=== PATIENT | female | born 1975 | race Caucasian/White ===

== ENCOUNTER 2017-01-11 10:21 | Emergency (ER) | payer BC ==
[~2017-01-11] VITALS: Ht 170.2 cm; Wt 119.8 kg
[~2017-01-11 10:21] MED LIST: DULO60CA44 PO; EPIPEN; IVIG IV; LEVO200T PO
[2017-01-11 10:23] VITALS: TEMP 36.8; Ht 170.2 cm; Wt 119.8 kg
[2017-01-11] MEDS ORDERED: ONDANSETRON INJ 2 MG/ML 2 ML VIAL IV STA ×2 (11:29→14:17)
[2017-01-11 11:36] LABS: MANUAL MICROSCOPIC REQUIRED? YES; URINE APPEARANCE CLOUDY (CLEAR); URINE BILIRUBIN NEG (NEG); URINE COLOR YELLOW; URINE NITRITE NEG (NEG); URINE PH 5.5 (4.5-7.5); URINE SPECIFIC GRAVITY >= 1.030 (1.000-1.030); UROBILINOGEN NEG (NEG)
[2017-01-11 11:46] LABS: REVIEW REQ? NO
[2017-01-11] MEDS ORDERED: LEVO175T PO (11:49)
[2017-01-11] MEDS ORDERED: EPP3/2 IM (11:49)
[2017-01-11] MEDS ORDERED: HYDR200T5 PO (11:52)
[2017-01-11] MEDS ORDERED: DMX250 PO (11:52)
[2017-01-11 11:55] LABS: URINE RBC 0-4 /hpf (0-4); URINE WBC 0 /hpf (0-5)
[2017-01-11 11:57] LABS: URINE AMORPHOUS SEDIMENT PRESENT (NONE PRSENT); URINE BACTERIA 1+ (NEG)
[2017-01-11 11:58] LABS: ZZUR CULT IF INDIC CLEAN CATCH YES
[2017-01-11 11:58] LABS: BASO % 0.2 %; BASO ABS # 0.02 K/uL (0-0.2); COMPLETE YES; EOS % 0.9 %; IG% 0.3 %; LYMPH % 17.3 %; MEAN CELL VOLUME 85.9 fL (80-100); MEAN CORPUSCULAR HEMOGLOBIN 30.1 pg (25-34); MEAN PLATELET VOLUME 10.6 fL (7.4-10.4); MONO % 7.9 %; NEUT % 73.4 %; PLATELET COUNT 241 K/uL (130-400); RED BLOOD COUNT 5.12 M/uL (4.2-5.4); WHITE BLOOD COUNT 11.56 K/uL (4.8-10.8)
[2017-01-11] MEDS ORDERED: ACET125T2 PO (12:10)
[2017-01-11] MEDS ORDERED: LIFI5DRO OPB (12:11)
[2017-01-11 12:18] LABS: BUN/CREATININE RATIO 13.1 (10-20); CREATININE 0.99 mg/dl (0.60-1.20); POTASSIUM 3.4 mmol/L (3.5-5.1)
[2017-01-11 12:22] LABS: ALB/GLOB RATIO 1.1 (0.9-2)
[2017-01-11 12:27] LABS: C-REACTIVE PROTEIN 1.22 mg/dl (0-0.29)
--- NOTE | 2017-01-11 12:35 | DIAGNOSTIC IMAGING REPORT ---
ABDOMINAL ULTRASOUND, RIGHT UPPER QUADRANT HISTORY: Right upper quadrant pain, nausea and diarrhea. COMPARISON: None. FINDINGS: Hepatic echogenicity is diffusely increased. No hepatic lesions are identified. There is no biliary ductal dilatation. There is no gallbladder wall thickening. There is echogenic material without associated shadowing within the gallbladder. This could reflect nonshadowing stones or sludge. The pancreatic body is normal. The head and tail are obscured. There is no right hydronephrosis. IMPRESSION: 1. Echogenic material within the gallbladder which could reflect stones or sludge. No evidence of acute cholecystitis. 2. No biliary ductal dilatation. 3. Fatty liver. Electronically signed by: Ruddy Prado M.D. 01/11/2017 12:33 PM Dictated Date/Time: 01/11/2017 12:32 PM
[2017-01-11] MEDS ORDERED: SODIUM CHLORIDE 0.9% 1000ML 1,000 ML IV STA ×2 (13:52→15:53)
[2017-01-11] MEDS ORDERED: PROMETHAZINE HCL INJ 25 MG in SODIUM CHLORIDE 0.9% 50ML 50 ML IV STA (15:53)
[2017-01-11 16:08] VITALS: BP 127/87
[2017-01-11] MEDS ORDERED: PROM25TA9 PO (17:04)
--- NOTE | 2017-01-11 17:09 | EMERGENCY ROOM VISIT NOTE ---
History First contact with patient: 11:10 Chief Complaint: DIARRHEA Stated Complaint: DIARRHEA, STOMACH CRAMPS, DEHYDRATION Nursing Triage Summary: I have been having diarrhea since sunday. I was told a while ago I needed my gallbladder out. History of Present Illness The patient is a 41 year old female who presents to the Emergency Room with complaints of abdominal cramping and diarrhea since Sunday. The patient reports that she has had profuse watery diarrhea without any blood. She rates her discomfort a 2 out of 10. She is concerned that she is dehydrated. She also reports a mild headache and dizziness yesterday. The patient has lost 10 pounds since Sunday. Every time she tries to eat or drink something, her diarrhea worsens. She denies any recent antibiotic treatment. She denies any recent foreign travel. She has no known sick contacts. The patient has a known history of gallstones and sludge, but has been too busy to follow-up with a general surgeon to discuss surgery. She currently rates her discomfort a 2 out of 10. Review of Systems HEENT: Denies current dizziness, visual problems, hearing loss, tinnitus. Denies difficulty swallowing or oral lesions. PULMONARY: Denies cough, shortness of breath, sputum production or hemoptysis. CARDIOVASCULAR: Denies chest pain, palpitations, dyspnea on exertion, orthopnea or peripheral edema. GASTROINTESTINAL: See history of present illness. GENITOURINARY: Denies dysuria, frequency, urgency or nocturia. NEUROLOGIC: Denies history of epilepsy, CVA, TIA or chronic headaches. MUSCULOSKELETAL: Denies history of joint tenderness/swelling. SKIN: Denies rashes or lesions. PSYCHIATRIC: Denies history of depression or mental illness. ENDOCRINE: Denies history of diabetes or thyroid disorders. Past Medical/Surgical History Medical Problems: (1) Body Mass Index 40.0-44.9, Adult (2) Gallstones (3) History of Sjogren's disease (4) Hx Of Thyroid Malignancy (5) Rheumatoid arthritis Surgical Problems: (1) History of hysterectomy (2) History of thymectomy (3) History of thyroidectomy (4) S/P left knee arthroscopy Family History Unremarkable Social History Smoking Status: Never Smoker Alcohol Use: none Marital Status: Housing Status: lives with family Occupation Status: employed Current/Historical Medications Scheduled Acetazolamide (Acetazolamide), 250 MG PO BID Duloxetine Hcl (Cymbalta), 60 MG PO BID Epinephrine (Epipen), 0.3 MG IM UD Hydroxychloroquine Sulfate (Plaquenil), 200 MG PO BID Levothyroxine Sodium (Synthroid), 175 MCG PO QAM Lifitegrast (Xiidra), 1 DROPS OPB BID [Ivig], 150 IV [id number] Scheduled PRN Promethazine Hcl (Phenergan), 25 MG PO Q6H PRN for Nausea Allergies Coded Allergies: BEE STING (Unverified Allergy, Unknown, SWELLING , SOB, 01/11/17) Sulfa Drugs (Unverified Allergy, Unknown, RASH, 01/11/17) Physical Exam Vital Signs Date Time Temp Pulse Resp B/P Pulse Ox O2 Delivery O2 Flow Rate FiO2 01/11/17 16:08 98 18 127/87 95 Room Air 01/11/17 14:13 76 18 116/75 98 Room Air 01/11/17 12:06 96 18 122/70 96 Room Air 01/11/17 10:23 36.8 107 18 137/91 100 Room Air Physical Exam CONSTITUTIONAL: Healthy and well nourished. Alert and oriented X 3 with positive affect. Patient appears mildly nauseated. HEENT: Normocephalic, atraumatic. Pupils equal, round and reactive. Ears and nares are clear. No scleral icterus or conjunctival injection. OROPHARYNX: No posterior pharyngeal erythema. Mucous membranes are not dry. NECK: Full active range of motion without discomfort. RESPIRATORY: Clear to auscultation bilaterally with no wheezing, crackles, rhonchi or stridor. CARDIOVASCULAR: Regular rate and rhythm with no murmurs, rubs or gallops. GASTROINTESTINAL: Bowel sounds present in all quadrants. Should has mild nonfocal tenderness to palpation. No rigidity, guarding or rebound. MUSCULOSKELETAL: Full range of motion of all joints without discomfort. INTEGUMENTARY: No rash or other significant dermatologic conditions noted. HEMATOLOGIC: No ecchymosis or petechiae. NEUROLOGIC: No focal neurologic deficits noted. Medical Decision & Procedures ER Provider Diagnostic Interpretation: Abdominal ultrasound does not show any evidence for pericholecystic fluid, common bile duct dilatation or wall thickening. Radiologist report is as follows: ABDOMINAL ULTRASOUND, RIGHT UPPER QUADRANT HISTORY: Right upper quadrant pain, nausea and diarrhea. COMPARISON: None. FINDINGS: Hepatic echogenicity is diffusely increased. No hepatic lesions are identified. There is no biliary ductal dilatation. There is no gallbladder wall thickening. There is echogenic material without associated shadowing within the gallbladder. This could reflect nonshadowing stones or sludge. The pancreatic body is normal. The head and tail are obscured. There is no right hydronephrosis. IMPRESSION: 1. Echogenic material within the gallbladder which could reflect stones or sludge. No evidence of acute cholecystitis. 2. No biliary ductal dilatation. 3. Fatty liver. Laboratory Results 01/11/17 11:35 Red Blood Count 5.12, Mean Corpuscular Volume 85.9, Mean Corpuscular Hemoglobin 30.1, Mean Corpuscular Hemoglobin Concent 35.0, Mean Platelet Volume 10.6, Neutrophils (%) (Auto) 73.4, Lymphocytes (%) (Auto) 17.3, Monocytes (%) (Auto) 7.9, Eosinophils (%) (Auto) 0.9, Basophils (%) (Auto) 0.2, Neutrophils # (Auto) 8.49, Lymphocytes # (Auto) 2.00, Monocytes # (Auto) 0.91, Eosinophils # (Auto) 0.10, Basophils # (Auto) 0.02 01/11/17 11:35 Test 01/11/17 11:20 01/11/17 11:35 Urine Color YELLOW Urine Appearance CLOUDY (CLEAR) Urine pH 5.5 (4.5-7.5) Urine Specific Delta >= 1.030 (1.000-1.030) Urine Protein TRACE (NEG) Urine Glucose (UA) NEG (NEG) Urine Ketones NEG (NEG) Urine Occult Blood NEG (NEG) Urine Nitrite NEG (NEG) Urine Bilirubin NEG (NEG) Urine Urobilinogen NEG (NEG) Urine Leukocyte Esterase NEG (NEG) Urine RBC (Auto) /hpf (0-4) Urine Epithelial Cells (Auto) /lpf (0-5) Urine RBC 0-4 /hpf (0-4) Urine WBC 0 /hpf (0-5) Urine Epithelial Cells 10-20 /lpf (0-5) Urine Amorphous Sediment PRESENT (NONE PRSENT) Urine Bacteria 1+ (NEG) White Blood Count 11.56 K/uL (4.8-10.8) Red Blood Count 5.12 M/uL (4.2-5.4) Hemoglobin 15.4 g/dL (12.0-16.0) Hematocrit 44.0 % (37-47) Mean Corpuscular Volume 85.9 fL (80-100) Mean Corpuscular Hemoglobin 30.1 pg (25-34) Mean Corpuscular Hemoglobin Concent 35.0 g/dl (32-36) Platelet Count 241 K/uL (130-400) Mean Platelet Volume 10.6 fL (7.4-10.4) Neutrophils (%) (Auto) 73.4 % Lymphocytes (%) (Auto) 17.3 % Monocytes (%) (Auto) 7.9 % Eosinophils (%) (Auto) 0.9 % Basophils (%) (Auto) 0.2 % Neutrophils # (Auto) 8.49 K/uL (1.4-6.5) Lymphocytes # (Auto) 2.00 K/uL (1.2-3.4) Monocytes # (Auto) 0.91 K/uL (0.11-0.59) Eosinophils # (Auto) 0.10 K/uL (0-0.5) Basophils # (Auto) 0.02 K/uL (0-0.2) RDW Standard Deviation 38.8 fL (36.4-46.3) RDW Coefficient of Variation 12.2 % (11.5-14.5) Immature Granulocyte % (Auto) 0.3 % Immature Granulocyte # (Auto) 0.04 K/uL (0.00-0.02) Erythrocyte Sedimentation Rate 7 mm/hr (0-21) Anion Gap 6.0 mmol/L (3-11) Est Creatinine Clear Calc Drug Dose 100.2 ml/min Estimated GFR () 82.0 Estimated GFR (Non- 70.8 BUN/Creatinine Ratio 13.1 (10-20) Calcium Level 9.0 mg/dl (8.5-10.1) Total Bilirubin 0.8 mg/dl (0.2-1) Aspartate Amino Transf (AST/SGOT) 12 U/L (15-37) Alanine Aminotransferase (ALT/SGPT) 18 U/L (12-78) Alkaline Phosphatase 91 U/L (45-117) C-Reactive Protein 1.22 mg/dl (0-0.29) Total Protein 8.0 gm/dl (6.4-8.2) Albumin 4.1 gm/dl (3.4-5.0) Globulin 3.9 gm/dl (2.5-4.0) Albumin/Globulin Ratio 1.1 (0.9-2) Lipase 102 U/L (73-393) The above labs were reviewed. White count is mildly elevated with left shift and bandemia. Patient also has an elevated CRP. Lipase and electrolytes are otherwise grossly normal. Urinalysis is not suggestive of infection. A stool sample was collected. Fecal leukocytes are negative on smeared. C. difficile and stool cultures are pending at the time of dictation and patient discharge. Medications Administered Medications (Trade) Dose Ordered Sig/Jamir Route Start Time Stop Time Status Last Admin Dose Admin Ondansetron HCl 4 mg 4 mg NOW STAT IV 01/11/17 11:29 01/11/17 11:35 DC 01/11/17 11:42 4 MG Sodium Chloride (Nss 1000ml) 1,000 ml @ 999 mls/hr Q1H1M STAT IV 01/11/17 13:52 01/11/17 14:52 DC 01/11/17 14:14 999 MLS/HR Ondansetron HCl 4 mg 4 mg NOW STAT IV 01/11/17 14:17 01/11/17 14:18 DC 01/11/17 14:51 4 MG Sodium Chloride 1,000 ml @ 999 mls/hr Q1H1M STAT IV 01/11/17 15:53 01/11/17 16:53 DC 01/11/17 16:06 999 MLS/HR Promethazine HCl/ Sodium Chloride (Phenergan Inj/ Nss 50ml) 51 ml @ 204 mls/hr NOW STAT IV 01/11/17 15:53 01/11/17 16:07 DC 01/11/17 16:06 204 MLS/HR ED Course Patient history and physical exam were performed. Nurse's notes were reviewed. Initial vital signs shows a heart rate of 170s per minute. The patient is afebrile and normotensive. IV access was established, and labs were drawn. I initially ordered Zofran IVP, but inadvertently forgot to order normal saline until after laboratory studies were completed. Review of labs shows a leukocytosis with left shift and bandemia. CRP is also elevated. Any labs were grossly normal, including urinalysis. After reevaluating the patient and realizing that she had not been hydrated yet, an order was placed for normal saline 1 L bolus. She also had persistent nausea, and was administered an additional Zofran 4 mg IVP. The patient requested trying to eat some crackers as she had not been able to produce a stool sample which is usually triggered with oral intake. The patient still was unable to provide a stool sample, but was having worsening abdominal cramping and nausea. The patient was administered a second liter of normal saline and Phenergan 25 mg IVP. This provided much better pain and nausea relief, and the patient requested discharge home. The patient was able to provide a small stool sample, which was sent to the lab for further analysis. Fecal leukocytes were negative, otherwise remaining results, including C. difficile and stool cultures were pending at the time of dictation and patient discharge to home. The patient was encouraged to increase intake. She was provided a prescription for Phenergan to control nausea. The patient was instructed to return to the emergency department for any worsening symptoms or developing fever. Otherwise she was encouraged to follow-up with her family doctor if symptoms are not significantly improving within the next 2-3 days. The patient was happy with plan of care, and voiced understanding of all discharge instructions. Medical Decision Patient presents to the emergency department with complaint of profuse watery diarrhea. Her stool cultures are currently pending at this time. The patient had been in the emergency department for nearly 7 hours, and requested discharge home. Her clinical symptoms are consistent with a gastroenteritis. The patient also has a known history of gallbladder disease, however I do not feel that her current symptoms are secondary to gallbladder dysfunction. Her laboratory studies also are not suggestive of UTI, pyelonephritis, pancreatitis or hepatitis. I do not suspect a bowel obstruction as the patient has no vomiting. She is currently afebrile. Impression Primary Impression: Diarrhea with dehydration Departure Information Prescriptions Promethazine Hcl (Phenergan) 25 Mg Tab 25 MG PO Q6H Y for Nausea, #20 TAB Prov: Timi Baires PA 01/11/17 Referrals Phill Coley M.D. (PCP) Patient Instructions My [facility]
[2017-01-11 17:15] VITALS: PULSE 84; O2SAT 95
== END 2017-01-11 17:16 | disposition home or self-care (01) ==
LOC: C.EDB 10:22 → C.EDC 17:16
DX: R19.7 Diarrhea, unspecified (principal); E86.0 Dehydration; M35.00 Sjogren syndrome, unspecified; Z85.850 Personal history of malignant neoplasm of thyroid; M06.9 Rheumatoid arthritis, unspecified; Z90.710 Acquired absence of both cervix and uterus; E89.0 Postprocedural hypothyroidism; Z79.899 Other long term (current) drug therapy

== ENCOUNTER → 2018-04-11 | Day surgery (SDC) | payer BC ==
[2018-04-04 08:37] VITALS: BMI 42.0
[~2018-04-11] VITALS: Ht 170.2 cm; Wt 122.7 kg
[~2018-04-11] MED LIST changes: +ACET125T2 PO; -EPIPEN; +EPP3/2 IM; +HYDR200T5 PO; +IMMU4INJ SC; -IVIG IV; +LIDOCAINE HCL 2% 2 ML VIAL (20MG/ML) ONE; +LIFI5DRO OPB; +PROPOFOL IV EMULSION 10 MG/ML 20 ML VIAL ONE
[2018-04-11 12:37] VITALS: Ht 170.2 cm; Wt 122.7 kg
[2018-04-11 12:44] VITALS: TEMP 37
--- NOTE | 2018-04-11 12:58 | Endo History and Physical ---
History & Physical Date of Service: Apr 11, 2018. Chief Complaint: DIARRHEA RECTAL BLEED Referring Physician: DR. BOWERS History of Present Illness For EGD and colonoscopy Past Surgical History Hx Cardiac Surgery: No Hx Internal Defibrillator: No Hx Pacemaker: No Hx Abdominal Surgery: Yes (PARTIAL HYSTER, LAP DANIELLA, UMBILICAL HERNIA REPAIR) Hx of Implantable Prosthesis: No Hx Post-Op Nausea and Vomiting: No Hx Cancer Surgery: Yes (THYROIDECTOMY) Hx Thoracic Surgery: Yes (THYMUSECTOMY/STERNOTOMY, 2013 STERNAL WIRE REMOVAL) Hx Orthopedic: Yes (L TKA, L KNEE TORN MENSICUS REPAIR) Hx Urinary Tract Surgery: No Family History None Social History Smoking Status: Never Smoker Hx Substance Use: No Hx Alcohol Use: No Allergies Coded Allergies: BEE STING (Verified Allergy, Unknown, SWELLING , SOB, 04/11/18) Sulfa Drugs (Verified Allergy, Unknown, RASH, 04/11/18) Current Medications Reported Home Medications Medications Dose Route/Sig Max Daily Dose Days Date Category Hizentra (Immune Globulin (Human) Subcut) 4 Gm/20 Ml Inj 20 Ml SC WK 04/04/18 Reported Synthroid (Levothyroxine Sodium) 200 Mcg Tab 200 Mcg PO DAILY 04/04/18 Reported Xiidra (Lifitegrast) 5 % Boris 1 Drops OPB BID 01/11/17 Reported Acetazolamide 125 Mg Tab 250 Mg PO BID 01/11/17 Reported Plaquenil (Hydroxychloroquine Sulfate) 200 Mg Tab 200 Mg PO BID 01/11/17 Reported Epipen (Epinephrine) 0.3 Mg/0.3 Ml Inj 0.3 Mg IM UD 01/11/17 Reported Cymbalta (Duloxetine Hcl) 60 Mg Cap 60 Mg PO BID 07/04/13 Reported Vital Signs Weight (Kilograms): 122.73 Height (Feet): 5 Height (Inches): 7 Date Time Temp Pulse Resp B/P (MAP) Pulse Ox O2 Delivery O2 Flow Rate FiO2 04/11/18 12:44 37 80 20 124/83 (97) 97 Room Air Physical Exam General Appearance: + obese Respiratory/Chest: Respiratory effort: no dyspnea Cardiovascular: Heart Auscultation: RRR Abdomen: Inspection & Palpation: soft Assessment and Plan Diarrhea, rectal bleeding for EGD and colonoscopy
--- NOTE | 2018-04-11 13:40 | Discharge Instructions ---
Endoscopy Patient Instructions Date / Procedure(s) Performed Apr 11, 2018. Colonoscopy, EGD Allergy Information Coded Allergies: BEE STING (Verified Allergy, Unknown, SWELLING , SOB, 04/11/18) Sulfa Drugs (Verified Allergy, Unknown, RASH, 04/11/18) Discharge Date / Findings Apr 11, 2018. hemorrhoids Medication Instructions Restart Stopped Medication(s): resume meds Reported Home Medications Medications Dose Route/Sig Max Daily Dose Days Date Category Hizentra (Immune Globulin (Human) Subcut) 4 Gm/20 Ml Inj 20 Ml SC WK 04/04/18 Reported Synthroid (Levothyroxine Sodium) 200 Mcg Tab 200 Mcg PO DAILY 04/04/18 Reported Xiidra (Lifitegrast) 5 % Boris 1 Drops OPB BID 01/11/17 Reported Acetazolamide 125 Mg Tab 250 Mg PO BID 01/11/17 Reported Plaquenil (Hydroxychloroquine Sulfate) 200 Mg Tab 200 Mg PO BID 01/11/17 Reported Epipen (Epinephrine) 0.3 Mg/0.3 Ml Inj 0.3 Mg IM UD 01/11/17 Reported Cymbalta (Duloxetine Hcl) 60 Mg Cap 60 Mg PO BID 07/04/13 Reported Provider Instructions Activity Restrictions - No exercising or heavy lifting for 24 hours. - Do not drink alcohol the day of the procedure. - Do not drive a car or operate machinery until the day after the procedure. - Do not make any important decisions or sign important papers in 24 hours after the procedure. Following Day: - Return to full activity which may include returning to work/school. Diet Start your diet with liquids and light foods (jello, soup, juice, toast). Then eat your usual diet if not nauseated. Treatment For Common After Affects For mild abdominal pain, bloating, or excessive gas: - Rest - Eat lightly - Lie on right side Follow-Up Information Follow-up with DR. BOWERS as scheduled Anesthesia Information What You Should Know You have had a procedure that required some medicine to reduce anxiety and discomfort. This treatment is called moderate sedation. After receiving the treatment, you may be sleepy, but you will be able to breathe on your own. The effects of the treatment may last for several hours. Follow these instructions along with Activity/Diet recommendations noted above: * Do NOT do anything where dizziness or clumsiness would be dangerous. * Rest quietly at home today, then you can be up and about tomorrow. * Have a responsible person stay with you the rest of today. * You may have had an I.V. today. If so, you may take the dressing off later today. Recommendations Call your doctor if: * Trouble breathing * Continuous vomiting for more than 24 hours * Temperature above 101 degrees * Severe abdominal pain or bloating * Pain not relieved by pain medicine ordered * There is increased drainage or redness from any incision * A large amount of rectal bleeding greater than 2-3 tablespoons. (If you had a polyp/s removed or have hemorrhoids, a small amount of blood - from the rectum is to be expected.) * You have any unanswered questions or concerns. IN THE EVENT OF A SERIOUS EMERGENCY, GO TO THE NEAREST EMERGENCY ROOM Your discharge instructions were prepared by provider Celestine Ling. Patient Instructions Signature Page Rose Porras Patient (or Guardian) Signature/Date: I have read and understand the instructions given to me by my caregivers. Caregiver/RN/Doctor Signature/Date: The above-named patient and/or guardian has received patient instructions on this date. + Original Patient Signature Page (only) stays with chart. Please make copy for patient.
--- NOTE | 2018-04-11 13:43 | GI REPORT ---
Patient Name: Rose Porras Procedure Date: 04/11/2018 12:45 PM Date of : 1975 Admit Type: Outpatient Age: 43 Gender: Female Attending MD: Celestine Ling MD Procedure: Upper GI endoscopy Providers: Celestine Ling MD Referring MD: Sweta Coley MD Indications: Hematochezia, Diarrhea Medicines: Propofol total dose 600 mg IV, Lidocaine 20 mg IV Complications: No immediate complications. Estimated Blood Loss: Estimated blood loss: none. Procedure: Pre-Anesthesia Assessment: - Prior to the procedure, a History and Physical was performed, and patient medications, allergies and sensitivities were reviewed. The patient's tolerance of previous anesthesia was reviewed. - The risks and benefits of the procedure and the sedation options and risks were discussed with the patient. All questions were answered and informed consent was obtained. After obtaining informed consent, the endoscope was passed under direct vision. Throughout the procedure, the patient's blood pressure, pulse, and oxygen saturations were monitored continuously. The Scope was introduced through the mouth, and advanced to the second part of duodenum. The upper GI endoscopy was accomplished without difficulty. The patient tolerated the procedure well. Findings: The Z-line was regular and was found 38 cm from the incisors. The esophagus was normal. The stomach was normal. The examined duodenum was normal. Impression: - Z-line regular, 38 cm from the incisors. - Normal esophagus. - Normal stomach. - Normal examined duodenum. - No specimens collected. Recommendation: - Discharge patient to home (ambulatory). - Continue present medications. - Return to primary care physician PRN. Celestine Ling M.D. Celestine Ling MD 04/11/2018 1:42:58 PM This report has been signed electronically. Note Initiated On: 04/11/2018 12:45 PM Number of Addenda: 0 I attest to the content of the Intraoperative Record and orders documented therein, exceptions below {[id number]}
--- NOTE | 2018-04-11 13:45 | GI REPORT ---
Patient Name: Rose Porras Procedure Date: 04/11/2018 1:18 PM Date of : 1975 Admit Type: Outpatient Age: 43 Gender: Female Attending MD: Celestine Ling MD Procedure: Colonoscopy Providers: Celestine Ling MD Referring MD: Sweta Coley MD Indications: Clinically significant diarrhea of unexplained origin, Rectal bleeding Medicines: Propofol total dose 600 mg IV, Lidocaine 20 mg IV Complications: No immediate complications. Estimated Blood Loss: Estimated blood loss: none. Procedure: Pre-Anesthesia Assessment: - Prior to the procedure, a History and Physical was performed, and patient medications, allergies and sensitivities were reviewed. The patient's tolerance of previous anesthesia was reviewed. - The risks and benefits of the procedure and the sedation options and risks were discussed with the patient. All questions were answered and informed consent was obtained. After I obtained informed consent, the scope was passed under direct vision. Throughout the procedure, the patient's blood pressure, pulse, and oxygen saturations were monitored continuously. The scope was introduced through the anus and advanced to the cecum, identified by appendiceal orifice and ileocecal valve. The colonoscopy was performed without difficulty. The patient tolerated the procedure well. The quality of the bowel preparation was excellent. Findings: Non-bleeding internal hemorrhoids were found during endoscopy. The hemorrhoids were mild. Impression: - Non-bleeding internal hemorrhoids. - No specimens collected. Recommendation: - Discharge patient to home (ambulatory). - Continue present medications. - Repeat colonoscopy in 10 years for screening purposes. - Return to primary care physician PRN. Celestine Ling M.D. Celestine Ling MD 04/11/2018 1:45:01 PM This report has been signed electronically. Note Initiated On: 04/11/2018 1:18 PM Number of Addenda: 0 I attest to the content of the Intraoperative Record and orders documented therein, exceptions below {[id number]}
--- NOTE | 2018-04-11 14:02 | Anesthesiology Progress Note ---
Anesthesia Post Op Note Date & Time Apr 11, 2018 at 13:59 Vital Signs Pain Intensity: 0 Vital Signs Past 12 Hours Date Time Temp Pulse Resp B/P (MAP) Pulse Ox O2 Delivery O2 Flow Rate FiO2 04/11/18 13:42 92 20 114/82 (93) 97 Room Air 04/11/18 12:44 37 80 20 124/83 (97) 97 Room Air Notes Mental Status: alert / awake / arousable, participated in evaluation Pt Amnestic to Procedure: Yes Nausea / Vomiting: adequately controlled Pain: adequately controlled Airway Patency, RR, SpO2: stable & adequate BP & HR: stable & adequate Hydration State: stable & adequate Anesthetic Complications: no major complications apparent
[2018-04-11 14:12] VITALS: BP 121/85; PULSE 84; O2SAT 98
== END | disposition home or self-care (01) ==
LOC: C.GI 12:13
PROVIDERS: ATTEND Internal Medicine Gastroenterology
DX: R19.7 Diarrhea, unspecified (principal); K62.5 Hemorrhage of anus and rectum; K64.8 Other hemorrhoids; M19.90 Unspecified osteoarthritis, unspecified site; G62.9 Polyneuropathy, unspecified; Z88.2 Allergy status to sulfonamides; Z91.030 Bee allergy status